=== PATIENT | female | born 1940 | race Hispanic/Latino ===

== ENCOUNTER 2017-12-12 22:41 | Emergency (ER) | payer MEDICARE ==
[2017-12-12] MEDS ORDERED: ASPIRIN 325 MG TABLET ONE (22:55)
[2017-12-12 23:06] LABS: BASOPHILS % (AUTO) 0.5 % (0.0-5.0); EOSINOPHILS % (AUTO) 2.8 % (0.0-8.0); HEMATOCRIT 30.7 % (36-48); LYMPHOCYTES % (AUTO) 40.1 % (21.0-51.0); MEAN CORPUSCULAR HEMOGLOBIN 28.5 pg (27.0-33.0); MEAN CORPUSCULAR HGB CONC 32.8 g/dL (32.0-36.0); MEAN CORPUSCULAR VOLUME 86.9 fL (79-99); NEUTROPHILS % (AUTO) 51.6 % (40.0-77.0); PLATELET COUNT (AUTO) 245 K/uL (130-400); RED BLOOD CELL COUNT(AUTO) 3.53 MIL/uL (4.00-5.50); RED CELL DISTRIBUTION WIDTH 15.2 % (11.0-15.5)
[2017-12-12 23:16] LABS: CREATININE 1.3 mg/dL (0.5-1.5); POTASSIUM 3.5 mmol/L (3.5-5.1)
[2017-12-12 23:20] LABS: ALBUMIN 3.4 g/dL (3.5-5.0); BILIRUBIN,TOTAL 0.3 mg/dL (0.2-1.0); TOTAL PROTEIN, SERUM 7.8 g/dL (6.0-8.3)
[2017-12-12 23:29] LABS: B-TYPE NATRIURETIC PEPTIDE 105 pg/mL (0-100)
== END 2017-12-13 01:59 | disposition home or self-care (01) ==
LOC: EDH 22:41
DX: R07.89 Other chest pain (principal); I10 Essential (primary) hypertension; E11.9 Type 2 diabetes mellitus without complications; I25.10 Atherosclerotic heart disease of native coronary artery without angina pectoris; E78.5 Hyperlipidemia, unspecified
CPT/HCPCS: 36415; 71045; 80053; 82550; 83880; 84484; 85025; 93005; 94761

== ENCOUNTER → 2018-05-11 | Outpatient (CLI) | payer MEDICARE | END | disposition home or self-care (01) | LOC: SHCH 15:06 | PROVIDERS: ATTEND Internal Medicine Cardiovascular Disease | DX: I35.0 Nonrheumatic aortic (valve) stenosis (principal); I10 Essential (primary) hypertension | CPT/HCPCS: 93306 ==

== ENCOUNTER → 2018-05-15 | Outpatient (CLI) | payer MEDICARE ==
[~2018-05-15] MED LIST: REGADENOSON 0.4 MG/5 ML PF SYG IVP SCH
== END | disposition home or self-care (01) ==
LOC: SHCH 08:31
PROVIDERS: ATTEND Internal Medicine Cardiovascular Disease
DX: R07.9 Chest pain, unspecified (principal); R06.00 Dyspnea, unspecified
CPT/HCPCS: 78452; 93017; 96374; A9500 ×2; J2785

== ENCOUNTER 2018-10-08 11:56 | Observation (INO) | payer MEDICARE ==
[~2018-10-08] VITALS: Ht 147.3 cm; Wt 68.1 kg
[~2018-10-08 11:56] MED LIST changes: +ACET-48 PO; +ALBU8.5H8 IH; +ASPI-555 PO; +ATOR40TA71 PO; +CLOP75TA32 PO; +HUM100IN SQ; +ISOS20TA7 PO; +LOSA1TAB42 PO; +METO-391 PO; +NITR0.4T50 SL; +PIOG15TA66 PO; +RANI150C4 PO; -REGADENOSON 0.4 MG/5 ML PF SYG IVP SCH; +SERT50TA12 PO; +SULF1TAB42 PO
[2018-10-08 12:28] LABS: BASOPHILS % (AUTO) 0.7 % (0.0-5.0); EOSINOPHILS % (AUTO) 2.9 % (0.0-8.0); HEMATOCRIT 28.2 % (36-48); LYMPHOCYTES % (AUTO) 22.7 % (21.0-51.0); MEAN CORPUSCULAR HEMOGLOBIN 28.4 pg (27.0-33.0); MEAN CORPUSCULAR HGB CONC 32.1 g/dL (32.0-36.0); MEAN CORPUSCULAR VOLUME 88.6 fL (79-99); MONOCYTES % (AUTO) 7.5 % (3.0-13.0); NEUTROPHILS % (AUTO) 66.2 % (40.0-77.0); NUCLEATED RED BLOOD CELLS 0.1 % (0.0-0.19); PLATELET COUNT (AUTO) 210 K/uL (130-400); RED BLOOD CELL COUNT(AUTO) 3.18 MIL/uL (4.00-5.50); RED CELL DISTRIBUTION WIDTH 15.8 % (11.0-15.5); WHITE BLOOD COUNT (AUTO) 7.3 K/uL (4.8-10.8)
[2018-10-08 12:39] LABS: CREATININE 1.2 mg/dL (0.5-1.5); POTASSIUM 4.4 mmol/L (3.5-5.1)
[2018-10-08 12:41] LABS: INR 1.09 (0.85-1.15); PROTHROMBIN TIME 11.4 SEC (9.6-11.6)
[2018-10-08 12:44] LABS: ALBUMIN 3.1 g/dL (3.5-5.0); BILIRUBIN,TOTAL 0.4 mg/dL (0.2-1.0); TOTAL PROTEIN, SERUM 7.3 g/dL (6.0-8.3)
[2018-10-08 12:51] LABS: B-TYPE NATRIURETIC PEPTIDE 378 pg/mL (0-100)
[2018-10-08] MEDS ORDERED: DIAZEPAM 5 MG TABLET ONE (13:42)
[2018-10-08] MEDS ORDERED: FUROSEMIDE 10 MG/ML 4ML VIAL IV SCH (15:30)
[2018-10-08 15:33] LABS: BILIRUBIN,URINE Negative (NEGATIVE); COLOR,URINE Yellow (YELLOW); GLUCOSE, URINE (UA) Negative (NEGATIVE); KETONES,URINE Negative (NEGATIVE); LEUKOCYTE ESTERASE ,URINE Trace (NEGATIVE); NITRATE,URINE Positive (NEGATIVE); OCCULT BLOOD,URINE Negative (NEGATIVE); PROTEIN,URINE Negative (NEGATIVE)
[2018-10-08 15:43] LABS: APPEARANCE,URINE HAZY (CLEAR)
[2018-10-08 15:52] LABS: BACTERIA,URINE Many /HPF (None Seen); RBC,URINE None Seen /HPF (0-1); SQUAMOUS EPITHELIAL CELL,UR Rare /HPF (0-2); WBC,URINE 0-1 /HPF (0-1)
[2018-10-08] MEDS ORDERED: SODIUM CHLORIDE 0.9% 10 ML VIAL IVP PRN (16:00)
[2018-10-08] MEDS ORDERED: FENTANYL CITRATE PF 50 MCG/1 ML 2ML VIAL ONE (16:07)
[2018-10-08] MEDS ORDERED: ASPIRIN 325 MG TABLET ONE (16:08)
[2018-10-08] MEDS ORDERED: NITROGLYCERIN 1GM/1 INCH PACKET TD ONE (16:08)
[2018-10-08] MEDS ORDERED: SODIUM CHLORIDE 0.9% 1000ML 1,000 ML IV SCH (17:07)
[2018-10-08] MEDS ORDERED: ALBUTEROL SULFATE 0.083% 2.5 MG/3 ML INH IH PRN (17:15)
[2018-10-08] MEDS ORDERED: LACTULOSE 20 GM/30 ML UDCUP PO PRN (17:15)
[2018-10-08] MEDS ORDERED: DiphenhydrAMINE HCL 50 MG/ML VIAL IV PRN (17:15)
[2018-10-08] MEDS ORDERED: GUAIFENESIN-DM 200/20 MG 10 ML PO PRN (17:15)
[2018-10-08] MEDS ORDERED: MAG HYDROX/AL HYDROX/SIMETH ES 30 ML SUSP UDCUP PO PRN (17:15)
[2018-10-08] MEDS ORDERED: ONDANSETRON HCL 4 MG/2 ML VIAL IV PRN (17:15)
[2018-10-08] MEDS: NITROGLYCERIN 1GM/1 INCH PACKET TD SCH (17:15)
[2018-10-08] MEDS ORDERED: DIPHENHYDRAMINE HCL 25 MG CAPSULE PO PRN (17:15)
[2018-10-08] MEDS ORDERED: ZOLPIDEM TARTRATE 5 MG TAB PO PRN (17:15)
[2018-10-08] MEDS ORDERED: NITROGLYCERIN 0.4 MG SL TAB SL PRN (17:15)
[2018-10-08] MEDS ORDERED: ACETAMINOPHEN 325 MG TAB PO PRN ×2 (17:15)
[2018-10-08] MEDS ORDERED: HYDRALAZINE HCL 20 MG/ML VIAL IV PRN (17:15)
[2018-10-08] MEDS ORDERED: IOHEXOL 350 MG/ML 100ML INFUS..BTL IV ONE (17:16)
[2018-10-08] MEDS ORDERED: FUROSEMIDE 10 MG/ML 4ML VIAL ONE (18:15)
[2018-10-08] MEDS: METOPROLOL TARTRATE 25 MG TAB PO SCH (21:00)
[2018-10-08] MEDS ORDERED: METOPROLOL TARTRATE 25 MG TAB ONE (21:36)
[2018-10-08 23:00] VITALS: BP 144/55
[2018-10-09 00:46] LABS: CREATINE KINASE, TOTAL 77 U/L (21-232); MYOGLOBIN 58 ng/mL (10-92); TROPONIN I < 0.04 ng/mL (0.00-0.06)
[2018-10-09] MEDS: NITROGLYCERIN 1GM/1 INCH PACKET TD SCH ×3 (01:49→17:15)
[2018-10-09 03:00] VITALS: BP 133/52
[2018-10-09] MEDS ORDERED: CARV25TA PO (03:23)
[2018-10-09] MEDS ORDERED: ROSU20TA31 PO (03:23)
[2018-10-09 05:46] LABS: BASOPHILS % (AUTO) 0.6 % (0.0-5.0); EOSINOPHILS % (AUTO) 3.6 % (0.0-8.0); HEMATOCRIT 27.6 % (36-48); LYMPHOCYTES % (AUTO) 32.8 % (21.0-51.0); MEAN CORPUSCULAR HEMOGLOBIN 28.4 pg (27.0-33.0); MEAN CORPUSCULAR HGB CONC 32.4 g/dL (32.0-36.0); MEAN CORPUSCULAR VOLUME 87.6 fL (79-99); MONOCYTES % (AUTO) 8.2 % (3.0-13.0); NEUTROPHILS % (AUTO) 54.8 % (40.0-77.0); NUCLEATED RED BLOOD CELLS 0.1 % (0.0-0.19); PLATELET COUNT (AUTO) 210 K/uL (130-400); RED BLOOD CELL COUNT(AUTO) 3.15 MIL/uL (4.00-5.50); RED CELL DISTRIBUTION WIDTH 15.6 % (11.0-15.5); WHITE BLOOD COUNT (AUTO) 5.5 K/uL (4.8-10.8)
[2018-10-09 06:04] LABS: ALANINE AMINOTRANSFERASE 27 U/L (12-78); ASPARTATE AMINOTRANSFERASE 18 U/L (10-37); BILIRUBIN,TOTAL 0.3 mg/dL (0.2-1.0); CARBON DIOXIDE 31 mmol/L (21-32); CHLORIDE 107 mmol/L (101-111); CREATINE KINASE, TOTAL 68 U/L (21-232); CREATININE 1.3 mg/dL (0.5-1.5); GLOMERULAR FILTR. RATE CALC 42 mL/min (>60); GLUCOSE,RANDOM 93 mg/dL (70-105); MYOGLOBIN 48 ng/mL (10-92); POTASSIUM 4.2 mmol/L (3.5-5.1); SODIUM SERUM 143 mmol/L (136-145); TOTAL PROTEIN, SERUM 6.9 g/dL (6.0-8.3); TROPONIN I < 0.04 ng/mL (0.00-0.06); UREA NITROGEN, BLOOD 29 mg/dL (7-18)
[2018-10-09] MEDS: REGADENOSON 0.4 MG/5 ML PF SYG IVP SCH ×2 (07:15→10:20)
[2018-10-09] MEDS: INSULIN LISPRO 100 UNIT/ML 3ML SQ SCH ×3 (07:30→17:03)
[2018-10-09 07:51] VITALS: BP 143/50
--- NOTE | 2018-10-09 08:00 | NUR ---
RESTING IN BED WITH HOB AT 30 DEGREES, RESP.'S EVEN AND UNLABORED. DENIES ANY C/O SOB, DENIES ANY CURRENT PAIN. REMINDED OF NPO STATUS FOR STRESS TEST TODAY, VERBALIZED UNDERSTANDING. CALL LIGHT WITHIN REACH, VERBALIZED UNDERSTANDING. BED LOW, SIDE RAILS UP X2.
[2018-10-09] MEDS: METOPROLOL TARTRATE 25 MG TAB PO SCH (08:31)
[2018-10-09] MEDS ORDERED: LISINOPRIL 10 MG TABLET PO SCH (09:00)
[2018-10-09] MEDS ORDERED: FAMOTIDINE 20MG TAB 20 MG TAB PO SCH (09:00)
[2018-10-09] MEDS ORDERED: ASPIRIN 325 MG TABLET PO SCH (09:00)
[2018-10-09] MEDS ORDERED: ENOXAPARIN SODIUM 40 MG/0.4 ML SYRINGE SQ SCH (09:00)
[2018-10-09 11:34] VITALS: BP 137/47
[2018-10-09 12:02] VITALS: BP 137/47
--- NOTE | 2018-10-09 12:20 | NUR ---
RETURNED TO ROOM VIA W/C FROM MD. DENIES ANY C/O AT THIS TIME.
--- NOTE | 2018-10-09 13:05 | NUR ---
SITTING UP IN BED EATING LUNCH W/O C/O. CALL LIGHT WITHIN REACH.
[2018-10-09 15:31] VITALS: BP 143/54
--- NOTE | 2018-10-09 18:15 | NUR ---
HL REMOVED, CATHETER INTACT. DISCHARGE INSTRUCTIONS GIVEN TO PT. AND PT.'S DAUGHTER AT BEDSIDE, VERBALIZED MUTUAL UNDERSTANDING.
== END 2018-10-09 18:40 | disposition home or self-care (01) ==
LOC: EDH 11:56 → EDHIP 17:07 → 2DH 21:53
PROVIDERS: ADMIT Family Medicine; ATTEND Family Medicine
DX: R07.89 Other chest pain (principal); E11.9 Type 2 diabetes mellitus without complications; E78.5 Hyperlipidemia, unspecified; I11.0 Hypertensive heart disease with heart failure; I50.31 Acute diastolic (congestive) heart failure; I25.10 Atherosclerotic heart disease of native coronary artery without angina pectoris; I35.1 Nonrheumatic aortic (valve) insufficiency; I35.2 Nonrheumatic aortic (valve) stenosis with insufficiency; Z95.5 Presence of coronary angioplasty implant and graft; Z82.49 Family history of ischemic heart disease and other diseases of the circulatory system; Z80.9 Family history of malignant neoplasm, unspecified; Z83.3 Family history of diabetes mellitus; Z90.49 Acquired absence of other specified parts of digestive tract; Z79.899 Other long term (current) drug therapy
CPT/HCPCS: 36415 ×2; 71046; 71250; 71275; 78452; 80053 ×2; 81001; 82550 ×3; 82948 ×3; 83735; 83874 ×2; 83880; 84484 ×3; 85025 ×2; 85610; 85730; 93005; 93017; 94664; 96372; 99284; A4600; A9500 ×2; G0378 ×23; J1650; J1940; J2785; J3010; Q9967; 96374

== ENCOUNTER 2018-12-18 17:10 | Emergency (ER) | payer MEDICARE ==
[~2018-12-18 17:10] MED LIST changes: -ATOR40TA71 PO; +CARV25TA PO; -METO-391 PO; +ROSU20TA31 PO; -SULF1TAB42 PO
[2018-12-18 17:46] LABS: BASOPHILS % (AUTO) 0.5 % (0.0-5.0); EOSINOPHILS % (AUTO) 4.9 % (0.0-8.0); HEMATOCRIT 32.1 % (36-48); LYMPHOCYTES % (AUTO) 24.6 % (21.0-51.0); MEAN CORPUSCULAR HEMOGLOBIN 28.8 pg (27.0-33.0); MEAN CORPUSCULAR HGB CONC 33.2 g/dL (32.0-36.0); MEAN CORPUSCULAR VOLUME 86.8 fL (79-99); MONOCYTES % (AUTO) 5.9 % (3.0-13.0); NEUTROPHILS % (AUTO) 64.1 % (40.0-77.0); PLATELET COUNT (AUTO) 265 K/uL (130-400); RED CELL DISTRIBUTION WIDTH 14.4 % (11.0-15.5); WHITE BLOOD COUNT (AUTO) 8.4 K/uL (4.8-10.8)
[2018-12-18 17:47] LABS: APPEARANCE,URINE Clear (CLEAR); BILIRUBIN,URINE Negative (NEGATIVE); COLOR,URINE Yellow (YELLOW); GLUCOSE, URINE (UA) Negative (NEGATIVE); KETONES,URINE Negative (NEGATIVE); LEUKOCYTE ESTERASE ,URINE Large (NEGATIVE); NITRATE,URINE Negative (NEGATIVE); OCCULT BLOOD,URINE Negative (NEGATIVE); PROTEIN,URINE Negative (NEGATIVE); UROBILINOGEN,URINE 0.2 mg/dL (0.2-1.0)
[2018-12-18 17:57] LABS: INR 0.99 (0.85-1.15); PARTIAL THROMBOPLASTIN TIME 28.9 SEC (26.3-35.5); PROTHROMBIN TIME 10.4 SEC (9.6-11.6)
[2018-12-18 17:58] LABS: CREATININE 1.7 mg/dL (0.5-1.5); POTASSIUM 4.2 mmol/L (3.5-5.1)
[2018-12-18 18:00] LABS: BACTERIA,URINE Few /HPF (None Seen); MUCUS,URINE Rare LPF (None Seen); RBC,URINE 0-1 /HPF (0-1)
== END 2018-12-18 22:32 | disposition home or self-care (01) ==
LOC: EDH 17:10
DX: S06.0X0A Concussion without loss of consciousness, initial encounter (principal); S40.012A Contusion of left shoulder, initial encounter; R42 Dizziness and giddiness; I10 Essential (primary) hypertension; E78.5 Hyperlipidemia, unspecified; E11.9 Type 2 diabetes mellitus without complications; I25.10 Atherosclerotic heart disease of native coronary artery without angina pectoris; Z79.4 Long term (current) use of insulin; W18.39XA Other fall on same level, initial encounter; Y93.89 Activity, other specified; Y92.098 Other place in other non-institutional residence as the place of occurrence of the external cause; Y99.8 Other external cause status
CPT/HCPCS: 36415; 70450; 71046; 73030; 80048; 81001; 82550; 84484; 85025; 85610; 85730; 93005

== ENCOUNTER 2019-04-01 13:32 | Inpatient (IN) | payer OTHER, MEDICARE ==
[~2019-04-01] VITALS: Ht 152.4 cm; Wt 63.0 kg
[~2019-04-01 13:32] MED LIST changes: -ACET-48 PO; +ACET-49 PO
[2019-04-01] MEDS ORDERED: ONDANSETRON HCL 4 MG/2 ML VIAL ONE (13:52)
[2019-04-01 14:07] LABS: BASOPHILS % (AUTO) 0.1 % (0.0-5.0); EOSINOPHILS % (AUTO) 1.6 % (0.0-8.0); HEMATOCRIT 35.8 % (36-48); LYMPHOCYTES % (AUTO) 14.3 % (21.0-51.0); MEAN CORPUSCULAR HEMOGLOBIN 27.7 pg (27.0-33.0); MEAN CORPUSCULAR HGB CONC 31.6 g/dL (32.0-36.0); MEAN CORPUSCULAR VOLUME 87.7 fL (79-99); NEUTROPHILS % (AUTO) 78.8 % (40.0-77.0); PLATELET COUNT (AUTO) 264 K/uL (130-400); RED BLOOD CELL COUNT(AUTO) 4.08 MIL/uL (4.00-5.50); RED CELL DISTRIBUTION WIDTH 12.9 % (11.0-15.5); WHITE BLOOD COUNT (AUTO) 9.6 K/uL (4.8-10.8)
[2019-04-01 14:19] LABS: CREATININE 1.4 mg/dL (0.5-1.5); POTASSIUM 4.3 mmol/L (3.5-5.1)
[2019-04-01 14:21] LABS: APPEARANCE,URINE Cloudy (CLEAR); BILIRUBIN,URINE Negative (NEGATIVE); COLOR,URINE Yellow (YELLOW); GLUCOSE, URINE (UA) Negative (NEGATIVE); KETONES,URINE Negative (NEGATIVE); LEUKOCYTE ESTERASE ,URINE Large (NEGATIVE); NITRATE,URINE Positive (NEGATIVE); OCCULT BLOOD,URINE Negative (NEGATIVE); PROTEIN,URINE POS 2+ mg/dL (NEGATIVE)
[2019-04-01 14:23] LABS: ALBUMIN 3.5 g/dL (3.5-5.0); BILIRUBIN,TOTAL 0.4 mg/dL (0.2-1.0)
[2019-04-01 14:33] LABS: BACTERIA,URINE Many /HPF (None Seen); RBC,URINE 0-1 /HPF (0-1); SQUAMOUS EPITHELIAL CELL,UR Few /HPF (0-2)
[2019-04-01] MEDS ORDERED: SODIUM CHLORIDE 0.9% 1000ML 1,000 ML IV ONE ×2 (14:38→18:06)
[2019-04-01] MEDS ORDERED: CEFTRIAXONE SODIUM 1 GM ONE (14:39)
[2019-04-01] MEDS ORDERED: MORPHINE SULFATE 2 MG/ML 1ML SYG ONE (14:40)
[2019-04-01] MEDS ORDERED: DEXTROSE 50%-WATER 50 ML DISP.SYRIN IV PRN (16:00)
[2019-04-01] MEDS ORDERED: ONDANSETRON HCL 4 MG/2 ML VIAL IV PRN (16:00)
[2019-04-01] MEDS ORDERED: GLUCAGON 1MG KIT 1 MG ML IM PRN (16:00)
[2019-04-01] MEDS ORDERED: MORPHINE SULFATE 2 MG/ML 1ML SYG IV PRN (16:00)
[2019-04-01] MEDS ORDERED: MORPHINE SULFATE 4 MG/1ML SYG IV PRN (16:00)
[2019-04-01] MEDS ORDERED: ACETAMINOPHEN 650 MG SUPPOSITORY RC ONE (17:56)
[2019-04-01] MEDS ORDERED: MORPHINE SULFATE 4 MG/1ML SYG ONE (18:06)
[2019-04-01] MEDS ORDERED: ACETAMINOPHEN 650 MG SUPPOSITORY RC PRN (19:00)
[2019-04-01] MEDS ORDERED: CEFTRIAXONE SODIUM 1 GM IV SCH (21:00)
[2019-04-01] MEDS: INSULIN HUMULIN R 100 UNIT/ML 3ML SQ SCH (21:00)
[2019-04-01] MEDS ORDERED: FAMOTIDINE/PF 20 MG/2 ML VIAL IV ONE (21:31)
[2019-04-01 21:55] VITALS: BP 133/52
--- NOTE | 2019-04-01 21:55 | NUR ---
Admission note: Received per stretcher to floor. Fully awake and responsive, but feels weak. Placed in bed comfortably. VS checked and recorded. Assessment done. ( See CPOE flow chart for full assessment). Plan of care initiated. Oriented to room and use of call light. Policies and procedures explained. Verbalized understanding. Home meds listed. Maintained on NPO as ordered. Kept observed for any unusual changes. Needs attended and cared for. Denies feeling of discomfort / pain. Distress not noted.
[2019-04-01] MEDS: SODIUM CHLORIDE 0.9% 1000ML 1,000 ML IV SCH (22:07)
[2019-04-01] MEDS ORDERED: OMEP40CA13 PO (22:52)
[2019-04-01] MEDS ORDERED: ISOS30TA6 PO (22:52)
[2019-04-01] MEDS ORDERED: FURO40TA5 PO (22:52)
[2019-04-01] MEDS ORDERED: ATOR40TA71 PO (22:52)
[2019-04-01] MEDS ORDERED: ASPI-1012 PO (22:52)
[2019-04-01] MEDS ORDERED: POTA-79 PO (22:52)
[2019-04-01] MEDS ORDERED: CARB15DR OP (22:53)
[2019-04-02] VITALS: BP 120/45
[2019-04-02] MEDS: CEFTRIAXONE SODIUM 1 GM IV SCH ×2 (02:56→14:24)
[2019-04-02 04:00] VITALS: BP 115/52
[2019-04-02 05:09] LABS: BASOPHILS % (AUTO) 0.3 % (0.0-5.0); EOSINOPHILS % (AUTO) 1.3 % (0.0-8.0); HEMATOCRIT 30.3 % (36-48); LYMPHOCYTES % (AUTO) 25.9 % (21.0-51.0); MEAN CORPUSCULAR HEMOGLOBIN 28.2 pg (27.0-33.0); MEAN CORPUSCULAR HGB CONC 31.7 g/dL (32.0-36.0); MEAN CORPUSCULAR VOLUME 89.1 fL (79-99); MONOCYTES % (AUTO) 5.7 % (3.0-13.0); NEUTROPHILS % (AUTO) 66.5 % (40.0-77.0); PLATELET COUNT (AUTO) 220 K/uL (130-400); RED CELL DISTRIBUTION WIDTH 13.2 % (11.0-15.5); WHITE BLOOD COUNT (AUTO) 6.8 K/uL (4.8-10.8)
[2019-04-02] MEDS: SODIUM CHLORIDE 0.9% 1000ML 1,000 ML IV SCH ×3 (05:40→18:36)
[2019-04-02 05:58] LABS: CREATININE 1.3 mg/dL (0.5-1.5); POTASSIUM 3.9 mmol/L (3.5-5.1)
[2019-04-02] MEDS: INSULIN HUMULIN R 100 UNIT/ML 3ML SQ SCH ×4 (06:15→20:49)
[2019-04-02 07:55] LABS: ALBUMIN 2.7 g/dL (3.5-5.0); BILIRUBIN,DIRECT 0.1 mg/dL (0.0-0.3); BILIRUBIN,TOTAL 0.3 mg/dL (0.2-1.0); TOTAL PROTEIN, SERUM 6.4 g/dL (6.0-8.3)
[2019-04-02 08:00] VITALS: BP 117/60
[2019-04-02] MEDS: FAMOTIDINE/PF 20 MG/2 ML VIAL IV SCH (09:02)
[2019-04-02] MEDS: ENOXAPARIN SODIUM 30 MG/0.3 ML SQ SCH (09:03)
--- NOTE | 2019-04-02 09:08 | NUR ---
DENIES ABD. PAIN AT THIS TIME, ASST. TO BR FOR A VOID, BM YESTERDAY.
[2019-04-02 12:00] VITALS: BP 189/87
--- NOTE | 2019-04-02 14:23 | NUR ---
Initial Assessment SW spoke with patient and daughter. Patient lives with son. No HH but has PHC with [facility] X 28 hours a week. daughter is provider. DME: BPM, glucometer (uses insulin). Patient needs help with ADL's and does not drive. PCP is Dr. Leighton Souza. Pharmacy is [facility] in [place]. DCP is home. Addendum: 04/02/19 at 1426 by KADE LUJAN SS Amended: Links added.
--- NOTE | 2019-04-02 14:37 | NUR ---
TO RAD DEPT FOR MRCP, WILL BE ABLE TO TAKE CLEAR LIQ WHEN RETURNS.
--- NOTE | 2019-04-02 15:03 | NUR ---
RD NOTIFICATION DX: PANCREATITIS. DIET: NPO. LIPASE TRENDING DOWN. LABS REVIEWED. MEDS REVIEWED. SKIN IS INTACT. NO COMPLAINTS OF N/V/C/D AT THIS TIME, N/V AND ABDOMINAL PAIN HAS RESOLVED ACCORDING TO PT. NO DIFFICULTIES CHEWING OR SWALLOWING AT THIS TIME. RD BRIEFLY DISCUSSED THE IMPORTANCE OF CONSUMING FOODS LOW IN FAT DUE TO PANCREATITIS. RD RECOMMENDS TO ADVANCE DIET TOLERATED TO LOW FAT DIET MONITOR PO INTAKE AND TOLERANCE MONITOR LABS PENDING LOW FAT NUTRITION EDUCATION IN UPPER SORBIAN ADD ENSURE CLEAR WITH MEALS Addendum: 04/02/19 at [address] Amended: Links added.
[2019-04-02 16:00] VITALS: BP 159/48
[2019-04-02 19:00] VITALS: BP 191/64
[2019-04-02] MEDS: HYDRALAZINE HCL 20 MG/ML VIAL IV PRN (20:50)
[2019-04-03] VITALS: BP 158/57
[2019-04-03] MEDS: CEFTRIAXONE SODIUM 1 GM IV SCH ×2 (02:21→16:20)
[2019-04-03 04:00] VITALS: BP 144/50
[2019-04-03] MEDS: SODIUM CHLORIDE 0.9% 1000ML 1,000 ML IV SCH ×4 (04:56→21:26)
[2019-04-03] MEDS: INSULIN HUMULIN R 100 UNIT/ML 3ML SQ SCH ×4 (05:10→20:17)
[2019-04-03 05:58] LABS: BASOPHILS % (AUTO) 0.3 % (0.0-5.0); HEMATOCRIT 32.3 % (36-48); LYMPHOCYTES % (AUTO) 31.6 % (21.0-51.0); MEAN CORPUSCULAR HEMOGLOBIN 27.9 pg (27.0-33.0); MEAN CORPUSCULAR HGB CONC 31.6 g/dL (32.0-36.0); MEAN CORPUSCULAR VOLUME 88.5 fL (79-99); MONOCYTES % (AUTO) 5.2 % (3.0-13.0); NEUTROPHILS % (AUTO) 59.4 % (40.0-77.0); PLATELET COUNT (AUTO) 246 K/uL (130-400); RED BLOOD CELL COUNT(AUTO) 3.65 MIL/uL (4.00-5.50); RED CELL DISTRIBUTION WIDTH 12.8 % (11.0-15.5)
[2019-04-03 06:21] LABS: POTASSIUM 3.9 mmol/L (3.5-5.1)
[2019-04-03 07:45] VITALS: BP 162/57
[2019-04-03 10:50] VITALS: BP 198/65
[2019-04-03] MEDS: FAMOTIDINE/PF 20 MG/2 ML VIAL IV SCH (11:21)
[2019-04-03] MEDS: ENOXAPARIN SODIUM 30 MG/0.3 ML SQ SCH (11:21)
[2019-04-03] MEDS: HYDRALAZINE HCL 20 MG/ML VIAL IV PRN (12:36)
--- NOTE | 2019-04-03 12:38 | NUR ---
BP 198/65, HR56. Patient denies headache, no redness or flushing to face, denies dizziness. Patient has room full of visitors laughing and joking. Educated patient and family on measures to lower BP, such as keeping quiet environment, dim lights, diet control and taking medications as prescribed. Patient and family verbalized understanding. Addendum: 04/03/19 at 1242 by GABRIELLA MINA RN RN 10 mg Hydralazine IVP administered. Will recheck BP and continue to monitor and educate patient.
[2019-04-03 15:10] VITALS: BP 148/60
[2019-04-03 20:43] VITALS: BP 149/57
[2019-04-04 00:04] VITALS: BP 154/53
[2019-04-04] MEDS: CEFTRIAXONE SODIUM 1 GM IV SCH ×2 (02:13→13:55)
[2019-04-04 04:02] VITALS: BP 145/54
[2019-04-04 04:09] LABS: BASOPHILS % (AUTO) 0.2 % (0.0-5.0); EOSINOPHILS % (AUTO) 3.5 % (0.0-8.0); HEMATOCRIT 29.4 % (36-48); LYMPHOCYTES % (AUTO) 36.1 % (21.0-51.0); MEAN CORPUSCULAR HEMOGLOBIN 27.9 pg (27.0-33.0); MEAN CORPUSCULAR VOLUME 87.2 fL (79-99); MONOCYTES % (AUTO) 6.5 % (3.0-13.0); NEUTROPHILS % (AUTO) 53.4 % (40.0-77.0); PLATELET COUNT (AUTO) 235 K/uL (130-400); RED BLOOD CELL COUNT(AUTO) 3.37 MIL/uL (4.00-5.50); RED CELL DISTRIBUTION WIDTH 13.2 % (11.0-15.5); WHITE BLOOD COUNT (AUTO) 6.3 K/uL (4.8-10.8)
[2019-04-04 04:45] LABS: CREATININE 1.1 mg/dL (0.5-1.5); POTASSIUM 3.3 mmol/L (3.5-5.1)
[2019-04-04] MEDS: INSULIN HUMULIN R 100 UNIT/ML 3ML SQ SCH ×2 (05:18→11:58)
[2019-04-04] MEDS ORDERED: POTASSIUM CHLORIDE 20MEQ/100ML 100 ML IV PRN (05:30)
[2019-04-04] MEDS ORDERED: POTASSIUM CHLORIDE 10% ELIXIR 20 MEQ/15 ML UDCUP PO PRN (05:30)
[2019-04-04] MEDS ORDERED: LIDOCAINE HCL-MPF 1% 2ML VIAL IV PRN (05:30)
[2019-04-04] MEDS: SODIUM CHLORIDE 0.9% 1000ML 1,000 ML IV SCH ×2 (05:59→10:00)
[2019-04-04 06:33] VITALS: BP 129/55
[2019-04-04] MEDS ORDERED: INSULIN HUMULIN R 100 UNIT/ML 3ML SQ SCH (07:30)
[2019-04-04] MEDS ORDERED: MAGNESIUM 2GM PREMIX 50ML 50 ML IV SCH (08:00)
[2019-04-04] MEDS ORDERED: [UNRECOGNIZED DRUG - OTHER] PO SCH (09:00)
[2019-04-04] MEDS ORDERED: LOSARTAN PO SCH (09:00)
[2019-04-04] MEDS ORDERED: ISOSORBIDE MONO 30MG TAB SR PO SCH (09:00)
[2019-04-04] MEDS ORDERED: HYDROCHLOROTHIAZIDE PO SCH (09:00)
[2019-04-04] MEDS ORDERED: FUROSEMIDE 40 MG TABLET PO SCH (09:00)
[2019-04-04] MEDS: ENOXAPARIN SODIUM 30 MG/0.3 ML SQ SCH (10:00)
[2019-04-04] MEDS: FAMOTIDINE/PF 20 MG/2 ML VIAL IV SCH (10:00)
[2019-04-04] MEDS: POTASSIUM CHLORIDE 20 MEQ ERTAB PO PRN ×2 (10:19→13:55)
[2019-04-04 11:07] VITALS: BP 156/67
[2019-04-04] MEDS ORDERED: LOSA50TA2 PO (14:12)
[2019-04-04] MEDS ORDERED: CEPH500B PO (14:12)
[2019-04-04] MEDS ORDERED: LOSARTAN 50 MG TABLET PO SCH (14:20)
[2019-04-04 15:28] VITALS: BP 186/65
--- NOTE | 2019-04-04 15:44 | NUR ---
[id number] Patient signed IM Letter. I faxed letter to [phone] and placed in chart under consent tab
--- NOTE | 2019-04-04 16:13 | NUR ---
Called [facility] to confirm that electronic transmission of prescription was received. Per pharmacy salesperson, prescription has not been received yet. Will check back in 10 minutes
== END 2019-04-04 18:00 | disposition home or self-care (01) | DRG 689 ==
LOC: EDH 13:32 → EDHIP 15:56 → 3BH 20:29
PROVIDERS: ADMIT Internal Medicine; ATTEND Internal Medicine
DX: N39.0 Urinary tract infection, site not specified (principal); K85.90 Acute pancreatitis without necrosis or infection, unspecified; I16.0 Hypertensive urgency; E11.9 Type 2 diabetes mellitus without complications; E78.5 Hyperlipidemia, unspecified; I10 Essential (primary) hypertension; I25.10 Atherosclerotic heart disease of native coronary artery without angina pectoris; I35.0 Nonrheumatic aortic (valve) stenosis; Z82.3 Family history of stroke; Z82.49 Family history of ischemic heart disease and other diseases of the circulatory system; Z83.3 Family history of diabetes mellitus; Z95.5 Presence of coronary angioplasty implant and graft; Z90.49 Acquired absence of other specified parts of digestive tract; Z79.899 Other long term (current) drug therapy; Z79.82 Long term (current) use of aspirin
CPT/HCPCS: 36415; 74181; 76705; 80048; 80053; 80076; 81001; 82948; 83605; 83690; 83735; 84145; 85025; 87040; 87077; 87088; 87186; G0378; J0360; J0696; J1650; J1815; J2270; J2405; J3490; J7030

== ENCOUNTER 2019-05-08 13:43 | Inpatient (IN) | payer OTHER, MEDICARE ==
[~2019-05-08] VITALS: Ht 147.3 cm; Wt 59.7 kg
[~2019-05-08 13:43] MED LIST changes: +ASPI-1012 PO; -ASPI-555 PO; +ATOR40TA71 PO; +CARB15DR OP; -CARV25TA PO; +CEPH500B PO; -CLOP75TA32 PO; +FURO40TA5 PO; -ISOS20TA7 PO; +ISOS30TA6 PO; -LOSA1TAB42 PO; +LOSA50TA2 PO; +OMEP40CA13 PO; -PIOG15TA66 PO; +POTA-79 PO; -RANI150C4 PO; -ROSU20TA31 PO; -SERT50TA12 PO
[2019-05-08 14:12] LABS: BASOPHILS % (AUTO) 0.2 % (0.0-5.0); EOSINOPHILS % (AUTO) 1.8 % (0.0-8.0); HEMATOCRIT 33.3 % (36-48); LYMPHOCYTES % (AUTO) 20.8 % (21.0-51.0); MEAN CORPUSCULAR HEMOGLOBIN 27.8 pg (27.0-33.0); MEAN CORPUSCULAR HGB CONC 31.2 g/dL (32.0-36.0); MONOCYTES % (AUTO) 4.5 % (3.0-13.0); NEUTROPHILS % (AUTO) 72.4 % (40.0-77.0); PLATELET COUNT (AUTO) 279 K/uL (130-400); RED BLOOD CELL COUNT(AUTO) 3.74 MIL/uL (4.00-5.50); RED CELL DISTRIBUTION WIDTH 13.5 % (11.0-15.5); WHITE BLOOD COUNT (AUTO) 9.3 K/uL (4.8-10.8)
[2019-05-08 14:25] LABS: APPEARANCE,URINE Clear (CLEAR); BILIRUBIN,URINE Negative (NEGATIVE); COLOR,URINE Yellow (YELLOW); GLUCOSE, URINE (UA) Negative (NEGATIVE); KETONES,URINE Negative (NEGATIVE); LEUKOCYTE ESTERASE ,URINE Moderate (NEGATIVE); NITRATE,URINE Negative (NEGATIVE); OCCULT BLOOD,URINE Negative (NEGATIVE); PROTEIN,URINE Negative (NEGATIVE); UROBILINOGEN,URINE 0.2 mg/dL (0.2-1.0)
[2019-05-08 14:25] LABS: INR 0.99 (0.85-1.15); PARTIAL THROMBOPLASTIN TIME 26.5 SEC (26.3-35.5); PROTHROMBIN TIME 10.4 SEC (9.6-11.6)
[2019-05-08 14:26] LABS: CREATININE 1.4 mg/dL (0.5-1.5); POTASSIUM 4.3 mmol/L (3.5-5.1)
[2019-05-08 14:30] LABS: ALBUMIN 3.2 g/dL (3.5-5.0); BILIRUBIN,TOTAL 0.2 mg/dL (0.2-1.0); TOTAL PROTEIN, SERUM 7.8 g/dL (6.0-8.3)
[2019-05-08 14:34] LABS: BACTERIA,URINE Moderate /HPF (None Seen); MUCUS,URINE Few LPF (None Seen); RBC,URINE 0-1 /HPF (0-1)
[2019-05-08] MEDS ORDERED: CEFTRIAXONE SODIUM 1 GM ONE (17:21)
[2019-05-08] MEDS ORDERED: SODIUM CHLORIDE 0.9% 500ML 500 ML IV ONE (17:22)
[2019-05-08] MEDS: CEFTRIAXONE SODIUM 1 GM IVP SCH (20:15)
[2019-05-08] MEDS: SODIUM CHLORIDE 0.9% 1000ML 1,000 ML IV SCH (20:15)
[2019-05-08] MEDS ORDERED: ONDANSETRON HCL 4 MG/2 ML VIAL IV PRN (20:15)
[2019-05-08] MEDS ORDERED: FAMOTIDINE/PF 20 MG/2 ML VIAL IV ONE (21:51)
[2019-05-08] MEDS ORDERED: SODIUM CHLORIDE 0.9% 1000ML 1,000 ML IV ONE (21:52)
[2019-05-09 04:10] LABS: BASOPHILS % (AUTO) 0.2 % (0.0-5.0); EOSINOPHILS % (AUTO) 1.3 % (0.0-8.0); HEMATOCRIT 35.9 % (36-48); LYMPHOCYTES % (AUTO) 27.9 % (21.0-51.0); MEAN CORPUSCULAR HEMOGLOBIN 27.6 pg (27.0-33.0); MEAN CORPUSCULAR HGB CONC 31.2 g/dL (32.0-36.0); MEAN CORPUSCULAR VOLUME 88.4 fL (79-99); MONOCYTES % (AUTO) 4.3 % (3.0-13.0); NEUTROPHILS % (AUTO) 66.1 % (40.0-77.0); PLATELET COUNT (AUTO) 265 K/uL (130-400); RED BLOOD CELL COUNT(AUTO) 4.06 MIL/uL (4.00-5.50); RED CELL DISTRIBUTION WIDTH 13.6 % (11.0-15.5); WHITE BLOOD COUNT (AUTO) 8.6 K/uL (4.8-10.8)
[2019-05-09 04:18] LABS: HEMOGLOBIN A1C 8.1 % (4.0-6.0)
[2019-05-09 04:27] LABS: ALBUMIN 3.1 g/dL (3.5-5.0); BILIRUBIN,DIRECT 0.1 mg/dL (0.0-0.3); BILIRUBIN,TOTAL 0.3 mg/dL (0.2-1.0); CREATININE 1.3 mg/dL (0.5-1.5); POTASSIUM 4.2 mmol/L (3.5-5.1); TOTAL PROTEIN, SERUM 7.5 g/dL (6.0-8.3)
[2019-05-09] MEDS: CEFTRIAXONE SODIUM 1 GM IVP SCH ×2 (08:15→20:15)
[2019-05-09] MEDS ORDERED: ASPIRIN 81MG TAB.CHEW ONE (08:31)
[2019-05-09] MEDS ORDERED: FAMOTIDINE/PF 20 MG/2 ML VIAL IV ONE ×2 (08:32→19:56)
[2019-05-09] MEDS ORDERED: FAMOTIDINE/PF 20 MG/2 ML VIAL IV SCH (09:00)
[2019-05-09] MEDS: ASPIRIN 81MG TAB.CHEW PO SCH (09:00)
--- NOTE | 2019-05-09 09:00 | NUR ---
DYSPHAGIA EVAL COMPLETED. -S/S OF ASPIRATION. RECOMMEND REGULAR TEXTURE, THIN LIQUIDS; PILLS WHOLE WITH LIQUIDS. Addendum: 05/09/19 at 1307 by LARRY CONNOLLY, [facility] Amended: Links added.
[2019-05-09] MEDS: INSULIN HUMULIN R 100 UNIT/ML 3ML SQ SCH ×3 (11:30→21:00)
--- NOTE | 2019-05-09 12:55 | NUR ---
INITIAL Patient lives with son. Emergency contact is daughter, Ayesha William, [phone]. No Home Health but PHC with [facility] X 31.5 hours a week. DME: BPM, glucometer (insulin). Patient needs help with ADL's and doesn't drive. PCP is Dr. Leighton Souza. Pharmacy is [facility] in [place]. DCP is home. Addendum: 05/09/19 at 1257 by KADE LUJAN SS Amended: Links added.
[2019-05-09] MEDS: SODIUM CHLORIDE 0.9% 1000ML 1,000 ML IV SCH ×2 (13:01→21:01)
[2019-05-09] MEDS ORDERED: SODIUM CHLORIDE 0.9% 50 ML IV ONE (19:56)
[2019-05-09] MEDS ORDERED: CEFTRIAXONE SODIUM 1 GM ONE (19:56)
--- NOTE | 2019-05-09 22:30 | NUR ---
ADMISSION 220 RECEIVED REPORT FROM JACEK RESENDEZ 0824 PT ADMITTED RM 204 TELEMETRY CONNECTED NO APPARENT DISTRESS NOTED ADMISSION DATABASE COMPLETE. WILL CONTINUE TO MONITOR.
[2019-05-10] VITALS: BP 133/52
[2019-05-10 03:42] VITALS: BP 143/52
[2019-05-10 03:56] LABS: BASOPHILS % (AUTO) 0.5 % (0.0-5.0); EOSINOPHILS % (AUTO) 4.2 % (0.0-8.0); HEMATOCRIT 31.8 % (36-48); LYMPHOCYTES % (AUTO) 37.3 % (21.0-51.0); MEAN CORPUSCULAR HEMOGLOBIN 27.7 pg (27.0-33.0); MEAN CORPUSCULAR HGB CONC 31.1 g/dL (32.0-36.0); MEAN CORPUSCULAR VOLUME 88.8 fL (79-99); MONOCYTES % (AUTO) 5.2 % (3.0-13.0); NEUTROPHILS % (AUTO) 52.5 % (40.0-77.0); PLATELET COUNT (AUTO) 257 K/uL (130-400); RED BLOOD CELL COUNT(AUTO) 3.58 MIL/uL (4.00-5.50); RED CELL DISTRIBUTION WIDTH 13.6 % (11.0-15.5); WHITE BLOOD COUNT (AUTO) 8.8 K/uL (4.8-10.8)
[2019-05-10] MEDS: SODIUM CHLORIDE 0.9% 1000ML 1,000 ML IV SCH ×2 (04:05→13:01)
[2019-05-10 04:11] LABS: B-TYPE NATRIURETIC PEPTIDE 348 pg/mL (0-100)
[2019-05-10 04:15] LABS: ALANINE AMINOTRANSFERASE 65 U/L (12-78); ALBUMIN 2.8 g/dL (3.5-5.0); ASPARTATE AMINOTRANSFERASE 32 U/L (10-37); BILIRUBIN,TOTAL 0.2 mg/dL (0.2-1.0); CARBON DIOXIDE 30 mmol/L (21-32); CHLORIDE 107 mmol/L (101-111); CREATININE 1.4 mg/dL (0.5-1.5); GLOMERULAR FILTR. RATE CALC 39 mL/min (>60); GLUCOSE,RANDOM 137 mg/dL (70-105); PHOSPHORUS 3.4 mg/dL (2.5-4.9); POTASSIUM 4.6 mmol/L (3.5-5.1); SODIUM SERUM 142 mmol/L (136-145); TOTAL PROTEIN, SERUM 6.8 g/dL (6.0-8.3); UREA NITROGEN, BLOOD 24 mg/dL (7-18)
[2019-05-10] MEDS: INSULIN HUMULIN R 100 UNIT/ML 3ML SQ SCH ×3 (06:43→16:30)
[2019-05-10 07:00] VITALS: BP 154/56
[2019-05-10] MEDS ORDERED: LOSARTAN 50 MG TABLET PO SCH (07:45)
--- NOTE | 2019-05-10 07:45 | NUR ---
AM ASSESSMENT PT LAYING IN BED, HOB ELEVATED 30 DEGREES, WATCHING TV. FAMILY @ BEDSIDE. A/O X 3. NO SOB. NO DISTRESS NOTED. DENIES CHEST PAIN OR DISCOMFORT. DENIES LIGHT-HEADEDNESS/DIZZINESS. TELE: SB 50s. DENIES N/V AND/OR DIARRHEA. UP W/ASSISTANCE. INSTRUCTED TO CALL FOR ASSISTANCE. CALL CIERRA W/IN REACH.
[2019-05-10] MEDS: CEFTRIAXONE SODIUM 1 GM IVP SCH (08:15)
[2019-05-10] MEDS ORDERED: ASPI-1005 PO (08:30)
[2019-05-10] MEDS ORDERED: FAMOTIDINE 20MG TAB 20 MG TAB PO SCH (09:00)
[2019-05-10] MEDS ORDERED: FUROSEMIDE 40 MG TABLET PO SCH (09:00)
[2019-05-10] MEDS: ASPIRIN 81MG TAB.CHEW PO SCH (10:23)
[2019-05-10] MEDS ORDERED: SULF1TAB42 PO (10:33)
[2019-05-10 11:00] VITALS: BP 181/61
--- NOTE | 2019-05-10 12:40 | NUR ---
STATUS PLAN TO DC PT HOME TODAY. BP TO BE MONITORED BP MEDS WERE ADJUSTED. @ THIS TIME NOTIFIED PT'S BP 181/61 & 194/55 ON RECHECK AFTER BP MEDS GIVEN. NEW ORDER RECEIVED & ENTERED.
[2019-05-10] MEDS ORDERED: HYDR25TA PO (12:44)
[2019-05-10] MEDS ORDERED: HYDRALAZINE HCL 20 MG/ML VIAL IV PRN (12:45)
[2019-05-10] MEDS ORDERED: HYDROCHLOROTHIAZIDE 25 MG TABLET PO SCH (12:45)
[2019-05-10] MEDS ORDERED: HYDROCHLOROTHIAZIDE 25 MG TABLET ONE (12:49)
--- NOTE | 2019-05-10 13:58 | NUR ---
STATUS BP RECHECK 149/48. NOTIFIED. JULY DC PT HOME TODAY.
[2019-05-10 15:00] VITALS: BP 134/48
--- NOTE | 2019-05-10 15:02 | NUR ---
[id number] patient signed IM Letter, I faxed IM Letter to [phone] and placed in chart under consent tab
--- NOTE | 2019-05-10 16:15 | NUR ---
DISCHARGE VERBAL & WRITTEN DISCHARGE INSTRUCTIONS REVIEWED & GIVEN TO PT IN [place]. QUESTIONS ENCOURAGED & CLARIFIED. PROPER CARE & MGT OF UTI REVIEWED. PREVENTION OF SYNCOPE REVIEWED. NEW PRESCRIBED MEDICATIONS REVIEWED. INFORMED PRESCRIPTION TRANSMITTED TO PHARMACY IN FILE. REINFORCED IMPORTANCE OF COMPLETING ANTIBIOTIC PRESCRIBED. ADJUSTMENTS TO HOME MEDICATIONS ALSO REVIEWED @ THIS TIME. F/U APPTS GIVEN. TELE WILLIAN REMOVED EARLIER. IV DC'D @ THIS TIME. PT TO GATHER PERSONAL BELONGINGS. WILL NOTIFY STAFF WHEN DAUGHTER ARRIVES TO TAKE PT HOME.
--- NOTE | 2019-05-10 16:40 | NUR ---
DISCHARGE DAUGHTER HERE TO TAKE PT HOME. PT TAKEN TO PRIVATE VEHICLE BY MYSELF, Art THOMAS RN. NO DISTRESS NOTED.
[2019-05-10] MEDS ORDERED: ATORVASTATIN CALCIUM 40 MG TABLET PO SCH (21:00)
== END 2019-05-10 16:40 | disposition home or self-care (01) | DRG 918 ==
LOC: EDH 13:43 → EDHIP 20:10 → 2AH 05-09 22:26
PROVIDERS: ADMIT Internal Medicine; ATTEND Internal Medicine
DX: T50.911A Poisoning by multiple unspecified drugs, medicaments and biological substances, accidental (unintentional), initial encounter (principal); I13.0 Hypertensive heart and chronic kidney disease with heart failure and stage 1 through stage 4 chronic kidney disease, or unspecified chronic kidney disease; N39.0 Urinary tract infection, site not specified; I50.32 Chronic diastolic (congestive) heart failure; I95.9 Hypotension, unspecified; R00.1 Bradycardia, unspecified; E11.22 Type 2 diabetes mellitus with diabetic chronic kidney disease; E78.5 Hyperlipidemia, unspecified; I25.10 Atherosclerotic heart disease of native coronary artery without angina pectoris; J44.9 Chronic obstructive pulmonary disease, unspecified; N18.3 Chronic kidney disease, stage 3 (moderate); K21.9 Gastro-esophageal reflux disease without esophagitis; I35.1 Nonrheumatic aortic (valve) insufficiency; B96.20 Unspecified Escherichia coli [E. coli] as the cause of diseases classified elsewhere; Z79.899 Other long term (current) drug therapy; Z95.5 Presence of coronary angioplasty implant and graft; Z82.3 Family history of stroke; Z82.49 Family history of ischemic heart disease and other diseases of the circulatory system; Z83.3 Family history of diabetes mellitus
CPT/HCPCS: 36415; 70450; 71045; 80048; 80053; 80061; 80076; 81001; 82550; 82948; 83036; 83735; 83880; 84100; 84145; 84484; 85025; 85610; 85730; 87077; 87088; 87186; 92610; 93005; 93306; 93880; G0378; J0696; J1815; J3490; J7030; J7040

== ENCOUNTER → 2021-08-10 | Outpatient (CLI) | payer OTHER, MEDICARE ==
[~2021-08-10] MED LIST changes: -ALBU8.5H8 IH; +ASPI-1005 PO; -ASPI-1012 PO; -CARB15DR OP; +CARV12.511 PO; +CEPH-578 PO; -CEPH500B PO; +HYDR25TA PO; -ISOS30TA6 PO; +ISOS30TA92 PO; -OMEP40CA13 PO; +OMEP40CA21 PO; -POTA-79 PO
== END | disposition home or self-care (01) ==
LOC: RAH 10:48
PROVIDERS: ATTEND Family Medicine
DX: I70.203 Unspecified atherosclerosis of native arteries of extremities, bilateral legs (principal); M25.552 Pain in left hip; M79.604 Pain in right leg; M79.605 Pain in left leg; M25.551 Pain in right hip
CPT/HCPCS: 93925